=== PATIENT | female | born 1985 | race Caucasian/White ===

== ENCOUNTER 2019-09-18 11:18 | Emergency (ER) | payer OTHER ==
[2019-09-18 11:28] VITALS: TEMP 97.6
[2019-09-18] MEDS ORDERED: FAMOTIDINE 20 MG/2 ML VIAL IV STA (11:31)
[2019-09-18] MEDS ORDERED: diphenhydrAMINE 50 MG/ML 1 ML VIAL IVP STA (11:31)
[2019-09-18] MEDS ORDERED: methylPREDNISolone SOD SUCCI 125 MG/2 ML VIAL IV STA (11:31)
[2019-09-18] MEDS ORDERED: SODIUM CHLORIDE 0.9% 500 ML 500 ML IV STA (11:31)
[2019-09-18] MEDS ORDERED: ALPRAZolam 0.5 MG TAB PO STA (11:32)
[2019-09-18 12:26] VITALS: BP 126/85; PULSE 66; RESP 16
--- NOTE | 2019-09-18 12:39 | ED ---
General Adult HPI - General Chief complaint: Allergic Reaction Stated complaint: bee sting/allergic reaction Time Seen by Provider: 09/18/19 11:27 Source: patient, RN notes reviewed, old records reviewed Mode of arrival: wheelchair Limitations: no limitations - History of Present Illness Initial comments: 33-year-old female patient presented to ED for evaluation of possible ALLERGIC reaction. Patient reports that approximately half an hour before presentation to Hospital she felt something buzzing in her hair she went to pull it out she felt something sharp possibly staying her right hand second digit lateral aspect. Patient works that she then became very very anxious because she has had ALLERGIC reactions to bees before. She did not see will call insect possibly stung her. Patient then became short of breath. She denies ever having any rash, feeling like her throat is closing nausea or vomiting. Denies a chance of being . Denies any other complaints. Systemic: Pt denies fatigue, fever/chills, rash. Pt denies weakness, night sweats, weight loss. Neuro: Pt denies headache, visual disturbances, syncope or pre-syncope. HEENT: Pt denies ocular discharge or irritation, otalgia, rhinorrhea, pharyngitis or notable lymphadenopathy. Cardiopulmonary: Pt denies chest pain, heart palpitations, dyspnea on exertion. Abdominal/GI: Pt denies abdominal pain, n/v/d. : Pt denies dysuria, burning w/ urination, frequency/urgency. Denies new onset urinary or bowel incontinence. MSK: Pt denies myalgia, loss of strength or function in extremities. Neuro: Pt denies new onset weakness, paresthesias. - Related Data Previous Rx's Medication Instructions Recorded EPINEPHrine (Auto Inject) [Epipen] 0.3 mg IM ONCE PRN #2 pen 09/18/19 predniSONE 50 mg PO DAILY #3 tab 09/18/19 Allergies Allergy/AdvReac Type Severity Reaction Status Date / Time azithromycin Allergy Rash/Hives Verified 09/18/19 11:33 bee venom protein (honey bee) Allergy Anaphylaxis Verified 09/18/19 11:19 Penicillins Allergy Rash/Hives Verified 09/18/19 11:33 Review of Systems ROS Statement: Those systems with pertinent positive or pertinent negative responses have been documented in the HPI. ROS Other: All systems not noted in ROS Statement are negative. Past Medical History Past Medical History: Seizure Disorder History of Any Multi-Drug Resistant Organisms: None Reported Past Surgical History: Appendectomy Additional Past Surgical History / Comment(s): foot and wrist surgery Past Psychological History: No Psychological Hx Reported Smoking Status: Never smoker Past Alcohol Use History: None Reported Past Drug Use History: None Reported General Exam - General Exam Comments Initial Comments: Constitutional: NAD, AOX3, Pt has pleasant affect. HEENT: NC/AT, trachea midline, neck supple, no lymphadenopathy. Posterior pharynx non erythematous, without exudates. External ears appear normal, without discharge. Mucous membranes moist. Eyes PERRLA, EOM intact. There is no scleral icterus. No pallor noted. no angioedema. No posterior pharyngeal edema. Cardiopulmonary: RRR, no murmurs, rubs or gallops, no JVD noted. Lungs CTAB in anterior and posterior pierce. No peripheral edema. Abdominal exam: Abdomen soft and non-distended. Abdomen non-tender to palpation in all 4 quadrants. Bowel sounds active in LLQ. No hepatosplenomegaly. No ecchymosis Neuro: CN II-XII grossly intact. No nuchal rigidity. No raccon eyes, no rodgers sign, no hemotympanum. No cervical spinal tenderness. MSK: No posterior calf tenderness bilaterally, homans sign negative bilaterally. Posterior tibialis and radial pulse +2 bilaterally. Sensation intact in upper and lower extremities. Full active ROM in upper and lower extremities, 5/5 stregnth. Limitations: no limitations Course Vital Signs 09/18/19 09/18/19 09/18/19 11:25 11:30 12:24 Temperature 97.6 F Pulse Rate 90 66 Respiratory 24 28 H 16 Rate Blood Pressure 163/126 126/85 O2 Sat by Pulse 100 99 Oximetry Medical Decision Making - Medical Decision Making 33-year-old female patient presents to ED for evaluation of possible bee sting possible ALLERGIC reaction. patient very anxious. No rash. No angioedema. Patient was administered Benadryl steroids Pepcid anxiolytic. Patient's symptoms have resolved entirely. She is feeling much improved. Patient was observed for 1.5 hours total. Patient will be discharged with her steroid treatment and outpatient follow-up with primary care provider return precautions. EpiPen refilled. Case discussed with Dr. Marcelino. Disposition Clinical Impression: Bee sting, Insect sting, Anxiety Disposition: HOME SELF-CARE Condition: Stable Instructions (If sedation given, give patient instructions): Insect Bite or Sting (ED) Additional Instructions: Follow up with primary care provider tomorrow. Take steroids as directed. Return to ER if any worsening symptoms. Use EpiPen for emergency anaphylaxis. Prescriptions: EPINEPHrine (Auto Inject) [Epipen] 0.3 mg IM ONCE PRN #2 pen PRN Reason: Anaphylaxis predniSONE 50 mg PO DAILY #3 tab Is patient prescribed a controlled substance at d/c from ED?: No Referrals: Carmen Beck DO [Primary Care Provider] - 1-2 days
== END 2019-09-18 12:53 | disposition home or self-care (01) ==
LOC: EC 11:18
DX: T63.441A Toxic effect of venom of bees, accidental (unintentional), initial encounter (principal); F41.9 Anxiety disorder, unspecified; Z88.0 Allergy status to penicillin; Z88.1 Allergy status to other antibiotic agents; Z91.030 Bee allergy status
CPT/HCPCS: 99283; 96374; 96375 ×2; 96361; J1200; J2930

== ENCOUNTER → 2019-12-09 | Outpatient (CLI) | payer OTHER ==
[2019-12-09 11:47] LABS: HCT 43.2 % (34.0-46.0); HGB 14.4 gm/dL (11.4-16.0); MCH 30.6 pg (25.0-35.0); MCHC 33.2 g/dL (31.0-37.0); MCV 92.2 fL (80.0-100.0); Mean Platelet Volume 7.4; Platelet Count 362 k/uL (150-450); RBC 4.69 m/uL (3.80-5.40); RDW 12.7 % (11.5-15.5); WBC 9.8 k/uL (3.8-10.6)
[2019-12-09 20:12] LABS: African American GFR (CKD) 109.9 (60.0-200.0); Albumin 4.3 g/dL (3.80-4.90); Albumin/Globulin Ratio 1.59 (1.60-3.17); Anion Gap 7.9 mmol/L (4.00-12.00); BUN/Creat Ratio 17.5 Ratio (12.00-20.00); Calcium 9.5 mg/dL (8.7-10.3); Carbon Dioxide 26.1 mmol/L (21.6-31.8); Globulin 2.7 g/dL (1.6-3.3); Non-African American GFR(CKD) 94.8 (60.0-200.0); Potassium 4.7 mmol/L (3.5-5.5); Total Bilirubin 0.5 mg/dL (0.2-1.2)
[2019-12-09 20:20] LABS: T4, Free (Free Thyroxine) 1.2 ng/dL (0.80-1.80)
[2019-12-09 21:23] LABS: Gliadin AB IgA, Deaminated NEGATIVE (NEGATIVE); Gliadin AB IgA, Unit 0.9 U/mL; Gliadin AB IgG, Deaminated NEGATIVE (NEGATIVE)
== END | disposition home or self-care (01) ==
LOC: LABWHC1 10:13
PROVIDERS: ATTEND Physician Assistant
DX: R19.4 Change in bowel habit (principal)
CPT/HCPCS: 36415; 80053; 83516; 84439; 84443; 85027

== ENCOUNTER 2019-12-30 07:05 | Day surgery (SDC) | payer OTHER ==
[2019-12-28 15:54] VITALS: BMI 39.1
[~2019-12-30 07:05] MED LIST: LACTATED RINGERS 1,000 ML IV SCH
[2019-12-30 07:30] VITALS: TEMP 97.5
[2019-12-30] MEDS ORDERED: LACTATED RINGERS 1,000 ML IV ONE (07:41)
[2019-12-30] MEDS ORDERED: PROPOFOL 10 MG/ML 20 ML VIAL IV ONE (08:08)
--- NOTE | 2019-12-30 08:32 | P.PCN ---
Date of Procedure: 12/30/19 Description of Procedure: BRIEF HISTORY: Patient is a 34-year-old female presenting for outpatient colonoscopy for evaluation of change in bowel habits. She reports a diagnosis of irritable bowel syndrome since she was a child with a colonoscopy at the age of 9. Symptoms have progressively gotten worse. She reports 2-3 loose bowel movements daily, which are loose and with associated urgency. She also reports intermittent abdominal pain varying in location and quality. PROCEDURE PERFORMED: Colonoscopy with biopsy. PREOPERATIVE DIAGNOSIS: Change in bowel habits, previous colonoscopy at age 9. ESTIMATED BLOOD LOSS: Minimal. IV sedation per Anesthesia. PROCEDURE: After informed consent was obtained, the patient, was brought into the endoscopy unit. IV sedation was administered by Anesthesia under continuous monitoring. Digital rectal examination was normal. Initially the Olympus CF-190 flexible video colonoscope was then inserted in the rectum, gradually advanced into the cecum without any difficulty. Careful examination was performed as the scope was gradually being withdrawn. Ileocecal valve and the appendiceal orifice were visualized and appeared normal. Prep was fair with liquid stool throughout the entire colon which was lavaged prohibited complete visualization of the mucosa. Mucosa of the cecum, ascending colon, transverse colon, descending colon, sigmoid colon, and rectum which was visualized and appeared normal with random biopsies taken of the right and left colon as well as a normal-appearing terminal ileum, however fair prep prohibited complete visualization of the mucosa. Retroflexion was performed in the rectum and no lesions were seen. The patient tolerated the procedure well. IMPRESSION: Fair prep. Normal-appearing tissue which was able to visualize from rectum to cecum as well as normal-appearing terminal ileum with random biopsies taken of the right colon, left colon and terminal ileum. RECOMMENDATIONS: Findings of this examination were discussed with the patient as well as her . Okay to resume diet. Okay to resume medications. Await pathology from biopsies. Follow up in GI clinic as scheduled for results of biopsies and further management.
[2019-12-30 08:45] VITALS: RESP 16
[2019-12-30 09:08] VITALS: BP 123/76; PULSE 69
== END 2019-12-30 09:23 | disposition home or self-care (01) ==
LOC: ORWHC2ENDO 07:05
PROVIDERS: ATTEND Internal Medicine
DX: R19.4 Change in bowel habit (principal); R15.2 Fecal urgency; R10.9 Unspecified abdominal pain; K58.9 Irritable bowel syndrome, unspecified; G47.419 Narcolepsy without cataplexy; Z87.891 Personal history of nicotine dependence; Z88.1 Allergy status to other antibiotic agents; Z88.0 Allergy status to penicillin; Z91.030 Bee allergy status; Z79.1 Long term (current) use of non-steroidal anti-inflammatories (NSAID); Z79.899 Other long term (current) drug therapy; Z90.49 Acquired absence of other specified parts of digestive tract; Z98.890 Other specified postprocedural states
CPT/HCPCS: 81025; 88305; 45380; J2704

== ENCOUNTER 2020-06-05 20:58 | Emergency (ER) | payer OTHER ==
[2020-06-05 21:03] VITALS: RESP 18
--- NOTE | 2020-06-05 23:28 | XR ---
EXAMINATION TYPE: XR chest 2V DATE OF EXAM: 06/05/2020 COMPARISON: 06/06/2013 HISTORY: Chest pressure TECHNIQUE: FINDINGS: There is some increased pulmonary interstitial density in the left lung. Right lung is angelia r. Heart size is normal. There are no hilar masses. Mediastinum is normal. IMPRESSION: Mild left lower lobe interstitial pneumonia appears new compared to old exam. Normal hear t.
--- NOTE | 2020-06-06 00:52 | ED ---
URI HPI - General Chief Complaint: Upper Respiratory Infection Stated Complaint: COVID+,Cough,SOB Time Seen by Provider: 06/06/20 00:02 Source: patient, RN notes reviewed Mode of arrival: ambulatory Limitations: no limitations - History of Present Illness Initial Comments: 34-year-old female presents emergency Department chief complaint of positive Covid. Patient states she started symptoms approximately 9 days ago.patient states that she's had no relief with her symptoms. Patient's had fever chills, bodyaches runny nose. patient has a history of seizure disorder no other ssignificant past history. - Related Data Home Medications Medication Instructions Recorded Confirmed Dicyclomine [Bentyl] 10 mg PO TID 12/28/19 12/28/19 Epipen (Unknown Dose) 1 dose IM DIRECTED PRN 12/28/19 Ibuprofen [Motrin Ib] 200 mg PO DIRECTED PRN 12/28/19 12/28/19 modafiniL [Provigil] 50 mg PO QAM 12/28/19 12/28/19 Allergies Allergy/AdvReac Type Severity Reaction Status Date / Time azithromycin Allergy Rash/Hives Verified 06/05/20 21:03 bee venom protein (honey bee) Allergy Anaphylaxis Verified 06/05/20 21:03 Penicillins Allergy Rash/Hives Verified 06/05/20 21:03 Review of Systems ROS Statement: Those systems with pertinent positive or pertinent negative responses have been documented in the HPI. ROS Other: All systems not noted in ROS Statement are negative. Past Medical History Past Medical History: Seizure Disorder Additional Past Medical History / Comment(s): narcolepsy. History of Any Multi-Drug Resistant Organisms: None Reported Past Surgical History: Appendectomy Additional Past Surgical History / Comment(s): foot and wrist surgery Past Psychological History: No Psychological Hx Reported Smoking Status: Former smoker Past Alcohol Use History: Occasional Past Drug Use History: None Reported General Exam Limitations: no limitations General appearance: alert, in no apparent distress Head exam: Present: atraumatic, normocephalic, normal inspection Eye exam: Present: normal appearance, PERRL, EOMI. Absent: scleral icterus, con junctival injection, periorbital swelling ENT exam: Present: normal exam, normal oropharynx, mucous membranes moist Neck exam: Present: normal inspection, full ROM. Absent: tenderness, meningismus, lymphadenopathy Respiratory exam: Present: normal lung sounds bilaterally. Absent: respiratory distress, wheezes, rales, rhonchi, stridor Cardiovascular Exam: Present: regular rate, normal rhythm, normal heart sounds. Absent: systolic murmur, diastolic murmur, rubs, gallop, clicks GI/Abdominal exam: Present: soft, normal bowel sounds. Absent: distended, tenderness, guarding, rebound, rigid Neurological exam: Present: alert, oriented X3 Skin exam: Present: warm, dry, intact, normal color. Absent: rash Course Vital Signs 06/05/20 21:00 Temperature 98.4 F Pulse Rate 106 H Respiratory 18 Rate Blood Pressure 136/93 O2 Sat by Pulse 95 Oximetry Medical Decision Making - Medical Decision Making patient will receive monoclonal antibodies and discharged in stable condition. Disposition Clinical Impression: COVID-19 Disposition: HOME SELF-CARE Condition: Stable Instructions (If sedation given, give patient instructions): Coronavirus Disease 2019 (COVID-19) Additional Instructions: Please return to the Emergency Department if symptoms worsen or any other concerns. Is patient prescribed a controlled substance at d/c from ED?: No Referrals: Carmen Beck DO [Primary Care Provider] - 1-2 days Time of Disposition: 00:52
[2020-06-06] MEDS ORDERED: BAMLANIVIMAB (EUA) 700 MG, ETESEVIMAB (EUA) 1,400 MG in SODIUM CHLORIDE 0.9% 50 ML IVPB ONE (01:00)
[2020-06-06] MEDS ORDERED: SODIUM CHLORIDE 0.9% 50 ML IVPB ONE (01:00)
[2020-06-06 02:46] VITALS: BP 116/70; PULSE 73; TEMP 99.2
== END 2020-06-06 02:59 | disposition home or self-care (01) ==
LOC: EC 20:58
DX: U07.1 COVID-19 (principal); G47.419 Narcolepsy without cataplexy; Z79.899 Other long term (current) drug therapy; Z88.1 Allergy status to other antibiotic agents; Z88.0 Allergy status to penicillin; Z91.030 Bee allergy status; Z87.891 Personal history of nicotine dependence
CPT/HCPCS: 87635; 71046; 99284; 96365; Q0245

== ENCOUNTER 2021-11-07 17:07 | Emergency (ER) | payer BC, OTHER ==
[2021-11-07 17:17] VITALS: BP 151/103; PULSE 84; RESP 16; TEMP 97.9
[2021-11-07 18:56] LABS: Basophils # (A) 0.1 k/uL (0-0.2); Basophils % (A) 1 %; Eosinophils # (A) 0.4 k/uL (0-0.7); Eosinophils % (A) 4 %; HCT 43.6 % (34.0-46.0); HGB 14.3 gm/dL (11.4-16.0); Lymphocytes # (A) 2.1 k/uL (1.0-4.8); Lymphocytes % (A) 20 %; MCH 29.9 pg (25.0-35.0); MCHC 32.8 g/dL (31.0-37.0); MCV 91.1 fL (80.0-100.0); Mean Platelet Volume 7.6; Monocytes # (A) 0.6 k/uL (0-1.0); Monocytes % (A) 6 %; Neutrophils # (A) 7.3 k/uL (1.3-7.7); Neutrophils % (A) 68 %; Platelet Count 389 k/uL (150-450); RBC 4.79 m/uL (3.80-5.40); RDW 12.8 % (11.5-15.5); WBC 10.7 k/uL (3.8-10.6)
[2021-11-07 18:59] LABS: ALT 17 U/L (4-34); AST 18 U/L (14-36); African American GFR (CKD) >90 (>60 ml/min/1.73 sqM); Albumin 4.3 g/dL (3.5-5.0); Alkaline Phosphatase 83 U/L (38-126); Anion Gap 11 mmol/L; Blood Urea Nitrogen 16 mg/dL (7-17); Carbon Dioxide 25 mmol/L (22-30); Chloride 101 mmol/L (98-107); Glucose 91 mg/dL (74-99); Magnesium 1.9 mg/dL (1.6-2.3); Non-African American GFR(CKD) >90 (>60 ml/min/1.73 sqM); Sodium 137 mmol/L (137-145); Total Bilirubin 0.5 mg/dL (0.2-1.3); Total Protein 7.4 g/dL (6.3-8.2)
--- NOTE | 2021-11-07 19:05 | ED ---
General Adult HPI - General Chief complaint: Seizure Stated complaint: Seizure, foot pain, narcoleptic Time Seen by Provider: 11/07/21 18:12 Source: patient, RN notes reviewed, old records reviewed Mode of arrival: wheelchair Limitations: no limitations - History of Present Illness Initial comments: 36 yo female presented today for evaluation of loss consciousness, possible seizure. Patient has narcolepsy does take Provigil. She states that she's had multiple episodes of narcolepsy but had an episode today where she had passed out, and had some 30 seconds of shaking and her eyes rolled back. This was witnessed by her . She had no previous seizure history. This was not followed by postictal confusion. She she has been under a great deal stress lately and has been dealing with some left ankle pain for the past several weeks. - Related Data Home Medications Medication Instructions Recorded Confirmed Dicyclomine [Bentyl] 10 mg PO TID 12/28/19 12/28/19 Epipen (Unknown Dose) 1 dose IM DIRECTED PRN 12/28/19 Ibuprofen [Motrin Ib] 200 mg PO DIRECTED PRN 12/28/19 12/28/19 modafiniL [Provigil] 50 mg PO QAM 12/28/19 12/28/19 Allergies Allergy/AdvReac Type Severity Reaction Status Date / Time azithromycin Allergy Rash/Hives Verified 11/07/21 17:17 bee venom protein (honey bee) Allergy Anaphylaxis Verified 11/07/21 17:17 Penicillins Allergy Rash/Hives Verified 11/07/21 17:17 Review of Systems ROS Statement: Those systems with pertinent positive or pertinent negative responses have been documented in the HPI. ROS Other: All systems not noted in ROS Statement are negative. Past Medical History Past Medical History: Seizure Disorder Additional Past Medical History / Comment(s): narcolepsy. History of Any Multi-Drug Resistant Organisms: None Reported Past Surgical History: Appendectomy Additional Past Surgical History / Comment(s): foot and wrist surgery Past Psychological History: No Psychological Hx Reported Smoking Status: Former smoker Past Alcohol Use History: Occasional Past Drug Use History: None Reported General Exam Limitations: no limitations General appearance: alert, in no apparent distress Head exam: Present: atraumatic, normocephalic Eye exam: Present: normal appearance, PERRL ENT exam: Present: normal exam Neck exam: Present: normal inspection. Absent: tenderness, meningismus Respiratory exam: Present: normal lung sounds bilaterally. Absent: respiratory distress Cardiovascular Exam: Present: regular rate, normal rhythm GI/Abdominal exam: Present: soft. Absent: distended, tenderness Extremities exam: Present: normal capillary refill, other (Soft tissue swelling left ankle no erythema no warmth) Neurological exam: Present: alert, oriented X3, CN II-XII intact. Absent: motor sensory deficit Psychiatric exam: Present: normal affect, normal mood Skin exam: Present: warm, dry, intact. Absent: cyanosis, diaphoretic Course Vital Signs 11/07/21 17:13 Temperature 97.9 F Pulse Rate 84 Respiratory 16 Rate Blood Pressure 151/103 O2 Sat by Pulse 100 Oximetry EKG Findings - EKG Comments: EKG Findings:: EKG: Sinus rhythm low voltage rate 72, LA interval 161, QRS duration 78, QTC [address] segment elevation. Medical Decision Making - Medical Decision Making 36-year-old female history of narcolepsy with several episodes of sudden loss consciousness today with question of seizure activity. I did perform workup including EKG, CBC, CMP, head CT this is essentially negative in the emergency department. She had some left ankle swelling which is visualized with x-ray showing soft tissue swelling without acute bony abnormality. Patient is reevaluated, she is resting comfortable, eager for discharge. She will monitor symptoms closely. She will ice and elevate the ankle. She will return as needed. - Lab Data Result diagrams: 11/07/21 18:38 11/07/21 18:38 Lab Results 11/07/21 11/07/21 11/07/21 Range/Units 18:38 18:38 18:38 WBC 10.7 H (3.8-10.6) k/uL RBC 4.79 (3.80-5.40) m/uL Hgb 14.3 (11.4-16.0) gm/dL Hct 43.6 (34.0-46.0) % MCV 91.1 (80.0-100.0) fL MCH 29.9 (25.0-35.0) pg MCHC 32.8 (31.0-37.0) g/dL RDW 12.8 (11.5-15.5) % Plt Count 389 (150-450) k/uL MPV 7.6 Neutrophils % 68 % Lymphocytes % 20 % Monocytes % 6 % Eosinophils % 4 % Basophils % 1 % Neutrophils # 7.3 (1.3-7.7) k/uL Lymphocytes # 2.1 (1.0-4.8) k/uL Monocytes # 0.6 (0-1.0) k/uL Eosinophils # 0.4 (0-0.7) k/uL Basophils # 0.1 (0-0.2) k/uL Sodium 137 (137-145) mmol/L Potassium 4.0 (3.5-5.1) mmol/L Chloride 101 (98-107) mmol/L Carbon Dioxide 25 (22-30) mmol/L Anion Gap 11 mmol/L BUN 16 (7-17) mg/dL Creatinine 0.79 (0.52-1.04) mg/dL Est GFR (CKD-EPI)AfAm >90 (>60 ml/min/1.73 sqM) Est GFR (CKD-EPI)NonAf >90 (>60 ml/min/1.73 sqM) Glucose 91 (74-99) mg/dL Calcium 9.0 (8.4-10.2) mg/dL Magnesium 1.9 (1.6-2.3) mg/dL Total Bilirubin 0.5 (0.2-1.3) mg/dL AST 18 (14-36) U/L ALT 17 (4-34) U/L Alkaline Phosphatase 83 (38-126) U/L Troponin I <0.012 (0.000-0.034) ng/mL Total Protein 7.4 (6.3-8.2) g/dL Albumin 4.3 (3.5-5.0) g/dL Disposition Clinical Impression: Syncopal episodes, Narcolepsy Disposition: HOME SELF-CARE Condition: Fair Instructions (If sedation given, give patient instructions): Syncope (ED), Narcolepsy (DC) Is patient prescribed a controlled substance at d/c from ED?: No Referrals: Shruthi Sanchez PAC [Primary Care Provider] - 1-2 days Time of Disposition: 19:59
--- NOTE | 2021-11-07 19:11 | XR ---
EXAMINATION TYPE: XR ankle complete LT DATE OF EXAM: 11/07/2021 6:31 PM INDICATION: Patient age:Female; 36 years old; Reason for study: pain; COMPARISON: None TECHNIQUE: The left ankle is imaged in frontal, lateral and oblique projections. FINDINGS: There is no evidence of acute osseous pathology. The joint spaces are well-preserved without evidenc e of subluxation or dislocation. Kager's fat pad is intact. Mild soft tissue swelling around the ankl e. No radiopaque foreign bodies are identified. Prominent posterior process of the talus. IMPRESSION: 1. No evidence of acute fracture. 2. Subcutaneous swelling around the ankle likely secondary to underlying soft tissue injury.
--- NOTE | 2021-11-07 19:17 | CT ---
EXAMINATION TYPE: CT brain wo con CT DLP: 1107.4 mGycm, Automated exposure control for dose reduction was used. DATE OF EXAM: 11/07/2021 6:57 PM COMPARISON: None CLINICAL INDICATION:Female, 36 years old with history of seizure activity, TECHNIQUE: Brain: Axial CT images of the brain were obtained with coronal and sagittal reformats created and rev iewed. Contrast used: None. Oral contrast used: None. FINDINGS: Brain: Extra-axial spaces: No abnormal extra-axial fluid collections. Ventricular system: Within normal limits Cerebral parenchyma: No acute intraparenchymal hemorrhage or mass effect. The parham-white junction is well differentiated. Cerebellum: Unremarkable. Mass effect: No evidence of midline shift. Intracranial vasculature: unremarkable Soft tissues: Normal. Calvarium/osseous structures: No depressed skull fracture. Paranasal sinuses and mastoid air cells: Mild scattered paranasal sinus disease. Visualized orbits: Orbital contents are intact. IMPRESSION: No acute intracranial process.
== END 2021-11-07 20:46 | disposition home or self-care (01) ==
LOC: EC 17:07
DX: G47.419 Narcolepsy without cataplexy (principal); R55 Syncope and collapse; Z87.891 Personal history of nicotine dependence; Z88.0 Allergy status to penicillin; Z88.1 Allergy status to other antibiotic agents; Z91.030 Bee allergy status
CPT/HCPCS: 36415; 70450; 80053; 83735; 84484; 85025; 93005; 99285

== ENCOUNTER 2022-05-21 18:53 | Emergency (ER) | payer BC ==
[2022-05-21] MEDS ORDERED: ONDANSETRON 4 MG/2 ML VIAL IVP STA (21:58)
[2022-05-21] MEDS ORDERED: DEXAMETHASONE SOD PHOSPHATE 10 MG/ML 1 ML VIAL IVP STA (21:58)
[2022-05-21] MEDS ORDERED: KETOROLAC 15 MG/ML 1 ML VIAL IVP STA (21:58)
[2022-05-21] MEDS ORDERED: diphenhydrAMINE 50 MG/ML 1 ML VIAL IVP STA (21:58)
[2022-05-21] MEDS ORDERED: SODIUM CHLORIDE 0.9% 1,000 ML IV STA (21:58)
--- NOTE | 2022-05-21 22:47 | CT ---
EXAMINATION TYPE: CT brain wo con CT DLP: 1161.1 mGycm, Automated exposure control for dose reduction was used. DATE OF EXAM: 05/21/2022 10:26 PM COMPARISON: 11/07/2021. CLINICAL INDICATION:Female, 36 years old with history of Headache, TECHNIQUE: Brain: Axial CT images of the brain were obtained with coronal and sagittal reformats created and rev iewed. Contrast used: None. Oral contrast used: None. FINDINGS: Brain: Extra-axial spaces: No abnormal extra-axial fluid collections. Ventricular system: Within normal limits Cerebral parenchyma: No acute intraparenchymal hemorrhage or mass effect. The parham-white junction is well differentiated. Cerebellum: Unremarkable. Mass effect: No evidence of midline shift. Intracranial vasculature: unremarkable Soft tissues: Normal. Calvarium/osseous structures: No depressed skull fracture. Paranasal sinuses and mastoid air cells: Mild scattered paranasal sinus disease. Visualized orbits: Orbital contents are intact. IMPRESSION: No acute intracranial process.
[2022-05-21] MEDS ORDERED: CYCLOBENZAPRINE 5 MG TAB PO STA (23:17)
[2022-05-21] MEDS ORDERED: LIDOCAINE 5% PATCH TOPICAL STA (23:17)
--- NOTE | 2022-05-21 23:54 | ED ---
Headache HPI - General Chief Complaint: Headache Stated Complaint: Headache/neck pain Time Seen by Provider: 05/21/22 21:34 Mode of arrival: ambulatory Limitations: no limitations - History of Present Illness Initial Comments: Patient is a 36 -year-old female presents to the emergency department for head and neck pain. Symptoms started about 3 days ago upon waking up. Patient denies head and neck injury, recent falls. She has pain in the back of her head with photophobia. No double vision or blurry vision. Patient states she has never had a headache for this long and these symptoms are unusual for her. She reports pain in the sides of her neck which is worse with movement. No focal weakness or deficit. No numbness or tingling. No fever, chills, cold-like symptoms. No chest pain or shortness breath. - Related Data Home Medications Medication Instructions Recorded Confirmed Dicyclomine [Bentyl] 10 mg PO TID 12/28/19 12/28/19 Epipen (Unknown Dose) 1 dose IM DIRECTED PRN 12/28/19 Ibuprofen [Motrin Ib] 200 mg PO DIRECTED PRN 12/28/19 12/28/19 modafiniL [Provigil] 50 mg PO QAM 12/28/19 12/28/19 Previous Rx's Medication Instructions Recorded Cyclobenzaprine [Flexeril] 5 mg PO TID PRN #15 tablet 05/21/22 Ibuprofen [Motrin] 800 mg PO Q8HR PRN #30 tab 05/21/22 Lidocaine 5% Patch [Lidoderm 5% 1 patch TOPICAL DAILY PRN #7 patch 05/21/22 Patch] Allergies Allergy/AdvReac Type Severity Reaction Status Date / Time azithromycin Allergy Rash/Hives Verified 05/21/22 19:47 bee venom protein (honey bee) Allergy Anaphylaxis Verified 05/21/22 19:47 Penicillins Allergy Rash/Hives Verified 05/21/22 19:47 Review of Systems ROS Statement: Those systems with pertinent positive or pertinent negative responses have been documented in the HPI. ROS Other: All systems not noted in ROS Statement are negative. Past Medical History Past Medical History: Seizure Disorder Additional Past Medical History / Comment(s): narcolepsy. IBS History of Any Multi-Drug Resistant Organisms: None Reported Past Surgical History: Appendectomy, Orthopedic Surgery Additional Past Surgical History / Comment(s): foot and wrist surgery Past Psychological History: No Psychological Hx Reported Smoking Status: Former smoker Past Alcohol Use History: Occasional Past Drug Use History: None Reported General Exam Limitations: no limitations General appearance: alert, in no apparent distress Head exam: Present: atraumatic, normocephalic, normal inspection Eye exam: Present: normal appearance, PERRL, EOMI. Absent: scleral icterus, conjunctival injection, periorbital swelling ENT exam: Present: normal oropharynx Neck exam: Present: normal inspection, tenderness (right sternocleidomastoid), full ROM. Absent: meningismus, lymphadenopathy, thyromegaly Respiratory exam: Present: normal lung sounds bilaterally. Absent: respiratory distress, wheezes, rales, rhonchi, stridor Cardiovascular Exam: Present: regular rate, normal rhythm, normal heart sounds. Absent: systolic murmur, diastolic murmur, rubs, gallop, clicks Extremities exam: Present: normal inspection, full ROM, normal capillary refill Neurological exam: Present: alert, oriented X3, CN II-XII intact Psychiatric exam: Present: normal affect, normal mood Skin exam: Present: warm, dry, intact, normal color. Absent: rash Course Vital Signs 05/21/22 19:43 Temperature 98.0 F Pulse Rate 83 Respiratory 20 Rate Blood Pressure 159/87 O2 Sat by Pulse 99 Oximetry Medical Decision Making - Medical Decision Making Was pt. sent in by a medical professional or institution ([facility] Moreno, [facility], urgent care, hospital, or longterm...) When possible be specific @ -No Did you speak to anyone other than the patient for history (EMS, parent, family, police, friend...)? What history was obtained from this source @ -No Did you review nursing and triage notes (agree or disagree)? Why? @ -I reviewed and agree with nursing and triage notes Were old charts reviewed (outside hosp., previous admission, EMS record, old EKG, old radiological studies, urgent care reports/EKG's, longterm records)? Report findings @ -No old charts were reviewed Differential Diagnosis (chest pain, altered mental status, abdominal pain women, abdominal pain men, vaginal bleeding, weakness, fever, dyspnea, syncope, headache, dizziness, GI bleed, back pain, seizure, CVA, palpatations, mental health)? @ -Differential Headache: Migraine, tension, cluster, carbon monoxide, central venous thrombosis, pension karma temporal arteritis, acute closure glaucoma, intercranial hemorrhage, mastoiditis, sinusitis, head injury, this is not meant to be an all-inclusive list. EKG interpreted by me (3pts min.). @ -As above X-rays interpreted by me (1pt min.). @ -None done CT interpreted by me (1pt min.). @ -Yes, CT of the brain negative for acute process. U/S interpreted by me (1pt. min.). @ -None done What testing was considered but not performed or refused? (CT, X-rays, U/S, labs)? Why? @ -None What meds were considered but not given or refused? Why? @ -None Did you discuss the management of the patient with other professionals (professionals i.e. , PA, [facility] [facility]ER, lab, RT, psych nurse, social work supervisor, bank president, teacher, dispatch officer, spring encaser)? Give summary @ -No Was smoking cessation discussed for >3mins.? @ -No Was critical care preformed (if so, how long)? @ -No Were there social determinants of health that impacted care today? How? (Homelessness, low income, unemployed, alcoholism, drug addiction, transportation, low edu. Level, literacy, decrease access to med. care, senior living, rehab)? @ -No Was there de-escalation of care discussed even if they declined (Discuss DNR or withdrawal of care, Hospice)? DNR status @ -No] What co-morbidities impacted this encounter? (DM, HTN, Smoking, COPD, CAD, Cancer, CVA, ARF, Chemo, Hep., AIDS, mental health diagnosis, sleep apnea, morbid obesity)? @ -[None] Was patient admitted / discharged? Hospital course, mention meds given and route, prescriptions, significant lab abnormalities, going to OR and other pertinent info. @ -Patient presenting with head and neck pain. There is tenderness to the right sternocleidomastoid suspicious for neck strain. No neurological deficits. No numbness or tingling. No fever, nausea, vomiting. Based on history CT of the brain was obtained which is negative for acute process. Patient given migraine cocktail and treatment for neck pain which improved symptoms. Results discussed with patient. She will be discharged with symptomatic management MSK injury. She will follow-up with her primary care provider. Undiagnosed new problem with uncertain prognosis? @ -[No] Drug Therapy requiring intensive monitoring for toxicity (Heparin, Nitro, Insulin, Cardizem)? @ -[No] Were any procedures done? @ -[No] Diagnosis/symptom? @ -headache, neck strain Acute, or Chronic, or Acute on Chronic? @ -acute Uncomplicated (without systemic symptoms) or Complicated (systemic symptoms)? @ -uncomplicated Side effects of treatment? @ -[No] Exacerbation, Progression, or Severe Exacerbation? @ -[No] Poses a threat to life or bodily function? How? (Chest pain, [place], [place], pneumonia, PE, COPD, DKA, ARF, appy, cholecystitis, CVA, Diverticulitis, Homicidal, Suicidal, threat to staff... and all critical care pts) @ -[No] Dr. Drake is my attending Disposition Clinical Impression: Neck strain, Headache Disposition: HOME SELF-CARE Condition: Good Instructions (If sedation given, give patient instructions): Cervical Strain (ED), Acute Headache (ED) Additional Instructions: Take medication as directed. Do not drink alcohol or operate machinery while taking Flexeril as it can cause drowsiness. Apply warm compresses to neck. Follow-up with primary care provider in one to 2 days. Return to emergency department if you experience new, concerning, or worsening symptoms. Prescriptions: Cyclobenzaprine [Flexeril] 5 mg PO TID PRN #15 tablet PRN Reason: Muscle Spasm Lidocaine 5% Patch [Lidoderm 5% Patch] 1 patch TOPICAL DAILY PRN #7 patch PRN Reason: Pain Ibuprofen [Motrin] 800 mg PO Q8HR PRN #30 tab PRN Reason: Pain Is patient prescribed a controlled substance at d/c from ED?: No Referrals: Ruperto Gamboa Jr, DO [Primary Care Provider] - 1-2 days Time of Disposition: 23:54
[2022-05-22 00:06] VITALS: BP 131/87; PULSE 69; RESP 18; TEMP 97.8
== END 2022-05-22 00:05 | disposition home or self-care (01) ==
LOC: EC 18:53
DX: S16.1XXA Strain of muscle, fascia and tendon at neck level, initial encounter (principal); R51.9 Headache, unspecified; Z87.891 Personal history of nicotine dependence; Z88.0 Allergy status to penicillin; Z88.1 Allergy status to other antibiotic agents; Z91.030 Bee allergy status; X58.XXXA Exposure to other specified factors, initial encounter
CPT/HCPCS: 70450; 99284; 96374; 96375 ×3; 96361; J1200; J1100; J2405; J1885

== ENCOUNTER → 2023-05-09 | Outpatient (CLI) | payer BC ==
--- NOTE | 2023-05-13 11:21 | MM ---
Reason for Exam: Screening (asymptomatic). Last mammogram was performed 9 year(s) and 2 month(s) ago. Patient History: Menarche at age 6. First Full-Term at age 17. Premenopausal. Maternal aunt had breast cancer, age 60. Last menstrual period: 04/21/2023 Risk Values: Bethany 5 year model risk: 0.4%. NCI Lifetime model risk: 8.1%. Prior Study Comparison: 03/16/2014 Bilateral Diagnostic Mammogram, [facility]. Tissue Density: The breasts are heterogeneously dense, which may obscure small masses. Findings: Analyzed By CAD. There is no suspicious group of microcalcifications or new suspicious mass in either breast. Subcentimeter nodule in the upper outer margin of the bilateral breasts likely related to benign lymph node but not seen with certainty on prior exam. Overall Assessment: Incomplete: need additional imaging evaluation, BI-RAD 0 Management: Diagnostic Mammogram of both breasts. . Patient should continue monthly self-breast exams. A clinical breast exam by your physician is recommended on an annual basis. This exam should not preclude additional follow-up of suspicious palpable abnormalities. Note on Bethany scores and lifetime risk: 1. A Bethany score greater than 3% is considered moderate risk. If this is the case, consider specialist referral to assess eligibility for a risk reducing agent. 2. If overall lifetime risk for the development of breast cancer is 20% or higher, the patient may qualify for future screening with alternating mammogram and breast MRI. Electronically signed and approved by: Harshal Castaneda M.D. Radiologis
== END | disposition home or self-care (01) ==
LOC: RADMAMWWP 08:32
PROVIDERS: ATTEND Obstetrics & Gynecology Obstetrics
DX: Z12.31 Encounter for screening mammogram for malignant neoplasm of breast (principal); Z80.3 Family history of malignant neoplasm of breast
CPT/HCPCS: 77067

== ENCOUNTER → 2023-05-21 | Outpatient (CLI) | payer BC ==
--- NOTE | 2023-05-21 08:32 | MM ---
Reason for Exam: Additional evaluation requested from abnormal screening. Last screening mammogram was performed less than 1 month ago. Patient History: Menarche at age 6. First Full-Term at age 17. Premenopausal. Maternal aunt had breast cancer, age 60. Last menstrual period: 05/03/2023 Risk Values: Bethany 5 year model risk: 0.4%. NCI Lifetime model risk: 8.1%. Prior Study Comparison: 03/16/2014 Bilateral Diagnostic Mammogram, [facility]. 05/09/2023 Bilateral MG screening mammo w CAD, [facility]. Tissue Density: There are scattered areas of fibroglandular density. Findings: Analyzed By CAD. The pattern is symmetrical. Under compression the right craniocaudal nodular density appears to resolve. There is some residual evident on oblique view which appears somewhat superior initial laterally. Precautionary 6 month Follow-up is recommended. Small nodular density in the upper outer left posterior breast is persistent on compression views. In retrospect this appears to be present in 2014. Precautionary 6 month follow-up to confirm stability is recommended. No suspicious groups of microcalcifications, spiculated or lobular masses, architectural distortion or other secondary signs of malignancy are mammographically apparent. Overall Assessment: Probably benign, BI-RAD 3 Management: Diagnostic Mammogram of both breasts in 6 months. A negative mammogram report should not preclude additional follow up of suspicious palpable abnormalities. Patient should continue monthly self breast exam. A clinical breast exam by your physician is recommended on an annual basis and results should be correlated with mammographic findings. Electronically signed and approved by: Kenny Choudhury D.O. Radiologis
== END | disposition home or self-care (01) ==
LOC: RADMAMWWP 07:57
PROVIDERS: ATTEND Obstetrics & Gynecology Obstetrics
DX: R92.323 Mammographic fibroglandular density, bilateral breasts (principal); Z80.3 Family history of malignant neoplasm of breast
CPT/HCPCS: 77062; 77066

== ENCOUNTER → 2023-05-29 | Outpatient (CLI) | payer BC ==
[2023-05-29 15:33] LABS: Basophils # (A) 0.11 X 10*3/uL (0.00-0.10); Basophils % (A) 1.1 %; Eosinophils # (A) 0.24 X 10*3/uL (0.04-0.35); Eosinophils % (A) 2.5 %; HCT 45.1 % (37.2-46.3); HGB 14.9 g/dL (12.0-15.0); Lymphocytes # (A) 1.76 X 10*3/uL (0.90-5.00); Lymphocytes % (A) 18.4 %; MCV 90.7 FL (80.0-97.0); Mean Platelet Volume 10.5 FL (9.5-12.2); Monocytes % (A) 7.3 %; NRBC Per 100 WBC 0 X 10*3/uL (0.00-0.01); Neutrophils # (A) 6.74 X 10*3/uL (1.80-7.70); Neutrophils % (A) 70.5 %; Platelet Count 425 X 10*3/uL (140-440); RBC 4.97 X 10*6/uL (4.10-5.20); RDW 12.6 % (11.5-14.5); WBC 9.57 X 10*3/uL (4.50-10.00)
== END | disposition home or self-care (01) ==
LOC: LABPAT 09:48
PROVIDERS: ATTEND Obstetrics & Gynecology Obstetrics
DX: Z01.812 Encounter for preprocedural laboratory examination (principal); N92.0 Excessive and frequent menstruation with regular cycle; N92.1 Excessive and frequent menstruation with irregular cycle
CPT/HCPCS: 36415; 85025

== ENCOUNTER 2023-06-20 09:37 | Day surgery (SDC) | payer BC ==
[2023-06-18 11:37] VITALS: BMI 40.3
[~2023-06-20 09:37] MED LIST changes: +HYDROmorphone 0.5 MG/0.5 ML SYRINGE IVP PRN; -LACTATED RINGERS 1,000 ML IV SCH; +LIDOCAINE 1% (10MG/ML) FOR IV START INTRADERMA PRN; +MIDAZOLAM 2 MG/2 ML VIAL IV PRN; +Pre Op ABX Message 1 EACH MISC MISCELLANE ONE
--- NOTE | 2023-06-20 09:52 | P.HPOB ---
History of Present Illness H&P Date: 06/20/23 Chief Complaint: Heavy menstrual bleeding, irregular menstrual bleeding 37-year-old that presents with complaints of irregular heavy bleeding. Patient underwent ultrasound evaluation with essentially normal size uterus at 9 cm normal ovaries were appreciated. Patient is noting menstrual cycles to be heavy with daily bleeding in addition. Patient is very desirous of an endometrial ablation. Review of Systems Constitutional: Denies chills, Denies fatigue, Denies fever Ears, nose, mouth and throat: Denies headache Cardiovascular: Denies leg edema Respiratory: Denies dyspnea Gastrointestinal: Denies nausea, Denies vomiting Genitourinary: Reports abnormal vaginal bleeding, Reports menorrhagia, Denies Menstruation: Reports menses variable Past Medical History Past Medical History: Seizure Disorder Additional Past Medical History / Comment(s): having menstrual cycles-has had a constant period since ,narcolepsy-possible seizures-no grandmal-known known hx seizures-pt unable to give any description, IBS,UTI May 2023-tx History of Any Multi-Drug Resistant Organisms: None Reported Past Surgical History: Appendectomy, Orthopedic Surgery Additional Past Surgical History / Comment(s): ORIF left ankle x1,bone removed left ankle x1 and ORIF left wrist Past Anesthesia/Blood Transfusion Reactions: No Reported Reaction Additional Past Anesthesia/Blood Transfusion Reaction / Comment(s): urinated on self waking up from anesthesia. no hx blood transfusion Past Psychological History: No Psychological Hx Reported Smoking Status: Former smoker Past Alcohol Use History: Occasional Additional Past Alcohol Use History / Comment(s): quit smoking 2016, smoke for approx 15 yrs, 1ppd Past Drug Use History: None Reported - Past Family History Mother Family Medical History: Deep Vein Thrombosis (DVT) Additional Family Medical History / Comment(s): "open heart" Father Additional Family Medical History / Comment(s): "open heart" Son(s) Family Medical History: Neurologic Disorder, Seizure Disorder Additional Family Medical History / Comment(s): cerebral palsy, epilepsy Medications and Allergies Home Medications Medication Instructions Recorded Confirmed Type modafiniL [Provigil] 50 mg PO QAM 12/28/19 06/18/23 History Hyoscyamine Sulfate [Levsin] 0.125 mg PO HS 06/18/23 06/18/23 History Allergies Allergy/AdvReac Type Severity Reaction Status Date / Time azithromycin Allergy Rash/Hives Verified 06/18/23 10:28 bee venom protein (honey bee) Allergy Anaphylaxis Verified 06/18/23 10:28 Penicillins Allergy Rash/Hives Verified 06/18/23 10:28 Exam Osteopathic Statement: *. No significant issues noted on an osteopathic structural exam other than those noted in the History and Physical/Consult. Targeted physical exam was performed on this date and General is well-nourished well-developed non female in no acute distress, breathing is nonlabored, heart has a regular rate and rhythm, abdomen is soft and nontender, on genitourinary exam external genitalia is noted to be normal for age the vaginal mucosa is noted to be pink and well-rugated the uterus is mobile no adnexal masses are appreciated. Assessment and Plan (1) Menorrhagia Current Visit: Yes Status: Acute Code(s): N92.0 - EXCESSIVE AND FREQUENT MENSTRUATION WITH REGULAR CYCLE SNOMED Code(s): 929378926 (2) Metrorrhagia Current Visit: Yes Status: Acute Code(s): N92.1 - EXCESSIVE AND FREQUENT MENSTRUATION WITH IRREGULAR CYCLE SNOMED Code(s): 39605008 Plan: 37-year-old female that presents for hysteroscopy, dilation and curettage with endometrial ablation, NovaSure. Patient was counseled on options for her heavy menstrual bleeding and she states she would like to proceed with endometrial ablation. Risks were reviewed with patient in detail including failure of the procedure, uterine perforation, inability to do the procedure secondary to uterine cavity size. Patient states understanding and wishes to proceed with hysteroscopy, dilation curettage with endometrial ablation.
[2023-06-20] MEDS: DEXAMETHASONE SOD PHOSPHATE 4 MG/ML 1 ML VIAL IV ONE (09:54)
[2023-06-20] MEDS: LACTATED RINGERS 1,000 ML IV SCH (09:54)
[2023-06-20] MEDS: ONDANSETRON 4 MG/2 ML VIAL IVP ONE (09:54)
[2023-06-20] MEDS: FAMOTIDINE 20 MG/2 ML VIAL IVP ONE (10:27)
[2023-06-20] MEDS ORDERED: SUCCINYLCHOLINE CHLORIDE 200 MG/10 ML VIAL IV ONE (10:56)
[2023-06-20] MEDS ORDERED: MIDAZOLAM 2 MG/2 ML VIAL ONE (10:56)
[2023-06-20] MEDS ORDERED: fentaNYL (PF) 50 MCG/ML 2 ML AMP ONE (10:56)
[2023-06-20] MEDS ORDERED: LIDOCAINE 1% INJ 10MG/ML (20 ML MDV) ONE (10:56)
[2023-06-20] MEDS ORDERED: KETOROLAC 15 MG/ML 1 ML VIAL ONE (10:56)
[2023-06-20] MEDS ORDERED: PROPOFOL 10 MG/ML 20 ML VIAL IV ONE (10:56)
--- NOTE | 2023-06-20 11:49 | P.OP ---
Date of Procedure: 06/20/23 Preoperative Diagnosis: Menorrhagia, metrorrhagia Postoperative Diagnosis: Same Procedure(s) Performed: Hysteroscopy, dilation and curettage, endometrial ablation with NovaSure Anesthesia: EBONIE Surgeon: Devora Laws Estimated Blood Loss (ml): 5 IV fluids (ml): 200 Urine output (ml): 50 Pathology: other (Endometrial curettings) Condition: stable Disposition: PACU Indications for Procedure: Heavy menstrual bleeding with daily bleeding appreciated Operative Findings: Normal-appearing endometrial cavity. Description of Procedure: Patient is taken back to the operating suite where general anesthesia was obtained without difficulty by the anesthesia department. She is prepped and draped in the normal sterile fashion in the dorsolithotomy position. Weighted speculum was placed in the posterior vaginal vault and the anterior lip of the cervix was visualized and grasped with a single-tooth tenaculum. The endocervical canal was then serially dilated. Hysteroscope was placed through the cervix and toward the endometrial cavity minimal visualization secondary to bleeding is noted, cavity appears intact upon close inspection. Hysteroscope was removed. Sharp curettage was then performed the specimen was then sent to pathology for analysis. At this time the NovaSure device was opened and set to the cavity measurements length of 5, width of 2.8, after cavity assessment was completed the cycle was allowed to complete with a power of 77 and a total time of 73 seconds. After the cycle had completed the NovaSure device was removed without difficulty. The single-tooth tenaculum was taken off of the anterior lip of the cervix. Hemostasis was appreciated. All counts were to be correct x 2. Patient tolerated procedure well and was taken the recovery room awake in stable condition.
[2023-06-20 11:52] VITALS: TEMP 97.2
[2023-06-20 13:16] VITALS: BP 125/83; PULSE 65; RESP 18
== END 2023-06-20 12:40 | disposition home or self-care (01) ==
LOC: OR 09:37
PROVIDERS: ATTEND Obstetrics & Gynecology Obstetrics
DX: N92.1 Excessive and frequent menstruation with irregular cycle (principal); G40.909 Epilepsy, unspecified, not intractable, without status epilepticus; Z87.891 Personal history of nicotine dependence; Z88.0 Allergy status to penicillin; Z90.49 Acquired absence of other specified parts of digestive tract; Z91.030 Bee allergy status; Z79.899 Other long term (current) drug therapy
CPT/HCPCS: 81025; 88305; 58558; J2250; J0330; J1100; J2405; J2001; J3010; J3490; J1885; J2704

== ENCOUNTER → 2023-09-03 | Outpatient (CLI) | payer BC ==
--- NOTE | 2023-09-16 12:10 | MR ---
EXAMINATION TYPE: MR ankle LT wo con DATE OF EXAM: 09/03/2023 COMPARISON: Radiograph 11/07/2021 HISTORY: 37-year-old female M76.72, Lt ankle pain, swelling, Peroneal tendonitis, hx of bone spur [place] TECHNIQUE: Multiplanar, multisequence images of the left ankle were obtained without IV contrast. FINDINGS: Postsurgical change along the posterior aspect of the ankle likely for resection of previous symptoma tic os trigonum. There is prominent edema versus effusion/synovitis here along the posterior margin o f the talus extending into the fingers fat and extending off to the posteromedial posterolateral aspe cts of the ankle measuring up to 3.7 cm AP by 2.1 cm craniocaudal by 3.7 cm wide. Subchondral edema along the posterior margin of the posterior subtalar joint suggests possible underl mitch focal osteoarthritic change. Some adjacent punctate loose bodies are suggested as well. The abnormal signal intensity extends to the medial margin of the peroneal tendons and surrounds the flexor hallucis longus The syndesmosis and anterior extensor tendons appear satisfactory. The deltoid spring ligament complex and medial flexor tendons otherwise appear satisfactory. The ATFL and CFL are visualized intact. There is heterogeneity in the region of the PTFL but some int act fibers are visualized. Mild tenosynovial fluid along the peroneal tendons which otherwise appear intact. Tibiotalar joint is intact. Preserved fatty signal within the sinus tarsi. The tarsal tunnel is clear. Small delineation to the Achilles tendon. Origin of the plantar fascia is intact. IMPRESSION: 1. Prominent postsurgical change along the posterior aspect of the ankle likely relating to resection of previous symptomatic os trigonum. Soft tissue signal abnormality at the resection site measures u p to 3.7 x 2.1 x 3.7 cm extends back into Kager's fat, medially to encase the flexor hallucis longus tendon, and laterally to the margin of the peroneal tendons. Query as to time since patient's surgery . A combination of effusion and soft tissue inflammation/synovitis or extensive developing granulatio n tissue are some considerations. 2. Localized subchondral edema along the posterior margin of the posterior subtalar joint near the re section site could be reactive change or could reflect some early developing subtalar joint OA. A cou ple punctate loose bodies are present here as well. 3. Mild peroneal tenosynovitis without tendon injury. 4. Heterogeneity of the PTFL also likely postsurgical change. Some intact fibers are visualized.
== END | disposition home or self-care (01) ==
LOC: RADMRIMAIN 11:24
PROVIDERS: ATTEND Podiatrist Foot & Ankle Surgery
DX: M76.72 Peroneal tendinitis, left leg (principal); M25.472 Effusion, left ankle; M24.072 Loose body in left ankle; R60.0 Localized edema; Z98.890 Other specified postprocedural states

== ENCOUNTER → 2023-11-19 | Outpatient (CLI) | payer BC ==
--- NOTE | 2023-11-19 10:05 | MM ---
Reason for Exam: Follow-up at short interval from prior study. Last screening mammogram was performed 6 month(s) ago. Patient History: Menarche at age 6. First Full-Term at age 17. Premenopausal. Maternal aunt had breast cancer, age 60. Risk Values: Bethany 5 year model risk: 0.4%. NCI Lifetime model risk: 8.0%. Prior Study Comparison: 03/16/2014 Bilateral Diagnostic Mammogram, [facility]. 03/16/2014 Bilateral Diagnostic Ultrasound, [facility]. 05/09/2023 Bilateral MG screening mammo w CAD, [facility]. 05/21/2023 Bilateral MG 3D work up w/cad LUCIA, [facility]. Tissue Density: The breasts are heterogeneously dense, which may obscure small masses. Findings: Analyzed By CAD. Chronic nodularity seen bilaterally. No evidence for suspicious mass or distortion. No suspicious microcalcifications seen within either breast. Overall Assessment: Benign, BI-RAD 2 Management: Screening Mammogram of both breasts in 1 year. . Results were given to the patient verbally at the time of exam. Patient should continue monthly self-breast exams. A clinical breast exam by your physician is recommended on an annual basis. This exam should not preclude additional follow-up of suspicious palpable abnormalities. Note on Bethany scores and lifetime risk: 1. A Bethany score greater than 3% is considered moderate risk. If this is the case, consider specialist referral to assess eligibility for a risk reducing agent. 2. If overall lifetime risk for the development of breast cancer is 20% or higher, the patient may qualify for future screening with alternating mammogram and breast MRI. [facility], , 11/19/2023 10:02 AM. Electronically signed and approved by: Nahid Hoskins M.D. Radiologis
== END | disposition home or self-care (01) ==
LOC: RADMAMWWP 09:23
PROVIDERS: ATTEND Obstetrics & Gynecology Obstetrics
CPT/HCPCS: 77062; 77066